=== PATIENT | female | born 1955 | race Caucasian/White ===

== ENCOUNTER 2019-02-03 05:59 | Inpatient (IN) ==
--- NOTE | 2019-01-24 10:00 | PAT Medication Instructions ---
Medication Instructions Date of Service January 24, 2019 Home Medications Cbd Oil 1 dose PO QAM albuterol sulfate 1 puff INHALATION UD PRN cyclobenzaprine 5 mg PO UD PRN hydrocodone-acetaminophen 1 tab PO UD PRN ibuprofen [Advil] 400 mg PO UD PRN ASK your surgeon for instructions ibuprofen [Advil] 400 mg PO UD PRN DO NOT take the morning of surgery Cbd Oil 1 dose PO QAM cyclobenzaprine 5 mg PO UD PRN Take morning of surgery With a small sip of water, OTHERWISE NOTHING TO EAT OR DRINK AFTER MIDNIGHT: albuterol sulfate 1 puff INHALATION UD PRN (use if needed; please bring with you to hospital day of surgery if possible) hydrocodone-acetaminophen 1 tab PO UD PRN (okay to take up to 4 hours prior to surgery if needed) Take evening before surgery albuterol sulfate 1 puff INHALATION UD PRN (if needed) cyclobenzaprine 5 mg PO UD PRN (if needed) hydrocodone-acetaminophen 1 tab PO UD PRN (if needed) Other Notes If you have any questions please call us at [phone] or [phone] or [phone] or [phone]
--- NOTE | 2019-01-24 14:41 | Anesthesiology Consultation ---
Date of Service January 24, 2019 Assessment & Plan (1) Encounter for pre-operative examination: Chart Review Chart Review: Pending: Refer to Additional Notes / Consult section (pending preop testing (labs, EKG, CXR)) and Patient seen in Pre Admission Testing Teaching & Discussion Pre-Anesthesia Teaching/Discussion Notes: Instructed NPO after midnight before surgery,except medications with 15 cc of water. Medication instructions provide d according to the PAT guidelines. History Surgery Operation Date: 02/03/19 14:20 Proposed Procedures p Right Total Hip Replacement - Dean Loving MD Height/Weight Height: 5 ft 1 in Weight: 98.7 kg Allergies Allergy/AdvReac Type Severity Reaction Status Date / Time nickel Allergy Unknown Rash Verified 01/16/19 14:35 acetaminophen [From Percocet] AdvReac Unknown N/V Verified 01/16/19 14:35 amitriptyline AdvReac Unknown anxiety, Verified 01/24/19 14:44 elevated BP gabapentin [From Neurontin] AdvReac Unknown anxiety, Verified 01/24/19 14:44 elevated BP morphine AdvReac Unknown anxiety, Verified 01/24/19 14:44 elevated BP oxycodone [From Percocet] AdvReac Unknown N/V Verified 01/16/19 14:35 prednisone AdvReac Unknown elevated Verified 01/24/19 14:44 heart rate, elevated BP, sweating, insomnia Additional Notes: *Surgeon/OR made aware* Medications Home Medications Medication Instructions Recorded Confirmed Last Taken Cbd Oil 1 dose PO QAM 01/16/19 01/16/19 Unknown albuterol sulfate 1 puff INHALATION UD PRN 01/16/19 01/16/19 Unknown cyclobenzaprine 5 mg PO UD PRN 01/16/19 01/16/19 Unknown hydrocodone-acetaminophen 1 tab PO UD PRN 01/16/19 01/16/19 Unknown ibuprofen [Advil] 400 mg PO UD PRN 01/16/19 01/16/19 Unknown Past Medical History Medical History Anxiety Asthma, exercise induced stable Fibromyalgia History of herniated intervertebral disc Morbid obesity Osteoarthritis Exercise / Class Metabolic Activity III < 4 Walking/Shop/Light housework Past Family History Family History Father Family history of diabetes mellitus Brother Family history of diabetes mellitus Past Surgical History Surgical History History of appendectomy History of colonoscopy History of gynecologic surgery MULTIPLE (FOR OVARIAN CYST REMOVAL) History of laparoscopic cholecystectomy History of total hysterectomy Past Anesthesia History No Hx of Anesthesia Complications and No Family Hx of Anesthesia Complications History of PONV No Hx of PONV and Hx of Motion Sickness Social History Smoking Status: Never smoker Do You Dip or Chew Tobacco: No Hx Alcohol Use: Yes Alcohol type: wine alcohol intake frequency: holidays/special occasions only Hx Substance Use: Yes (OTC CBD oil PRN hip pain) substance use type: prescription drug Review of Systems Patient denies chest pain, shortness of breath, reflux, cough, wheezing, palpitations. Physical Exam Vital Signs VITALS BP 132/83 P 81 TEMP 98.2 SP02 98%RA RESP 16 PHYSICAL Full neck and c-spine range of motion. Full TMJ range of motion. TMD 4 finger breaths Mallampati Score 2 Dentition: partial on the upper, lower left side chipped tooth Lungs: clear throughout to auscultation Cardiac: regular rate and rhythm, no murmurs noted Spine: normal Carotid arteries: negative bruit Extremities: no edema Short neck
--- NOTE | 2019-01-24 15:37 | XRay Report ---
TWO VIEW CHEST CLINICAL HISTORY: Preoperative examination. FINDINGS: PA and lateral chest radiographs are compared to study dated 01/26/2012. The cardiomediastin al silhouette is unremarkable. There are low lung volumes with bibasilar atelectasis. No airspace con solidation or pleural effusion is identified. There is no pneumothorax. The skeletal structures are o steopenic. The bony thorax appears intact. Degenerative change is seen in the shoulders and thoracic spine. Cholecystectomy clips are seen in the right upper quadrant. IMPRESSION: No active disease in the chest. Electronically signed by: Marco Thrasher M.D. 01/24/2019 3:36 PM
[2019-01-24 16:01] LABS: Basophils # (auto) 0.02 K/uL (0-0.2); Basophils % (auto) 0.3 %; Eosinophils # (auto) 0.16 K/uL (0-0.5); Eosinophils % (auto) 2.1 %; Hematocrit (blood only) 40.5 % (37-47); Hemoglobin 13.6 g/dL (12.0-16.0); Immature Granulocytes # (auto) 0.02 K/uL (0.00-0.02); Immature Granulocytes % (auto) 0.3 %; Lymphocytes # (auto) 2.96 K/uL (1.2-3.4); Mean Corpuscular Hemoglobin 28.8 pg (25-34); Mean Corpuscular Hgb Conc 33.6 g/dL (32-36); Mean Corpuscular Volume 85.6 fL (80-100); Mean Platelet Volume 9.9 fL (7.4-10.4); Monocytes # (auto) 0.62 K/uL (0.11-0.59); Neutrophils # (auto) 4.01 K/uL (1.4-6.5); Neutrophils % (auto) 51.3 %; Platelet Count 286 K/uL (130-400); RDW Coefficient of Variation 13.3 % (11.5-14.5); RDW Standard Deviation 41.7 fL (36.4-46.3); Red Blood Count 4.73 M/uL (4.2-5.4); White Blood Count 7.79 K/uL (4.8-10.8)
[2019-01-24 16:13] LABS: Partial Thromboplastin Time 26.8 Seconds (21.0-31.0); Prothrombin Time 10.1 Seconds (9.0-12.0)
[2019-01-24 16:21] LABS: BUN Creatinine Ratio 23.8 (10-20); C Reactive Protein 0.73 mg/dl (0-0.29); Calcium 9.5 mg/dl (8.5-10.1); Creatinine Clr Calc Pharmacy 89.7 ml/min; Est GFR (African American) 107.6; Est GFR (Non-African American) 92.9; Potassium 3.6 mmol/L (3.5-5.1)
--- NOTE | 2019-01-27 18:53 | History and Physical Report ---
DATE OF ADMISSION: 02/03/2019 CHIEF COMPLAINT: Right hip pain. HISTORY OF PRESENT ILLNESS: A 63-year-old female from [place] who presents for treatment of her right hip. She has a long history of back, hip and buttock pain. She has been extensively treated for some back issues in the past that have not gotten better. They noticed on x-ray that her hip was arthritic. They have treated her conservatively for this but it has become less successful over time. She describes buttock pain, groin pain and thigh pain. The more she walks, the more it hurts. They did attempt an intra-articular hip joint injection, which helped her very briefly. She has become more debilitated by her pain. She has difficulty putting her shoes and socks on. Cannot walk more than about 20 minutes before she has extensive discomfort. She has been taking hydrocodone for pain. She would like to have her hip fixed. PAST MEDICAL HISTORY: Includes: 1. Obesity with BMI of 41. 2. Back pain. PAST SURGICAL HISTORY: Include: 1. Hysterectomy. 2. Cholecystectomy. ALLERGIES: 1. MORPHINE, WHICH CAUSES NAUSEA. 2. PREDNISONE. CURRENT MEDICINES: Include: 1. Hydrocodone 1 tablet 3 times a day. 2. Cyclobenzaprine. 3. Advil. 4. CBD oil. SOCIAL HISTORY: A 63-year-old female. She is from [place]. She is . Does not drink. No smoking history. FAMILY HISTORY: Significant for diabetes and ovarian cancer. REVIEW OF HISTORY: Negative for diabetes, neurologic problems, vascular problems, or bleeding disorders. No chest pain or shortness of breath. No history of DVT or PE. PHYSICAL EXAMINATION: GENERAL: Reveals a pleasant, middle-aged female. Looks to be in pretty good health. HEENT: Benign. NECK: Supple, no lymphadenopathy. LUNGS: Clear to auscultation. HEART: Regular rate and rhythm. ABDOMEN: Soft, nontender, nondistended. EXTREMITIES: Grossly neurovascularly intact except as follows: Examination of the right hip and leg reveals the patient walks with an antalgic gait. She is about 0.5 cm short on the right compared to the left. She does have pain and stiffness with any type of hip motion. Internal rotation causes quite a bit of pain. Negative straight leg raise. X-RAYS: X-rays of the right hip were reviewed. It shows advanced right hip DJD. She has complete near loss of her superior joint space. She has cystic change of the femoral head and acetabulum. She has flattening in the femoral head. It looks like she has got some underlying dysplasia. Some bowing of the femur. ASSESSMENT: A 63-year-old female with advanced right hip degenerative joint disease. I think this is causing a lot of discomfort that she is having and she has failed conservative treatment. PLAN: We are going to take her to the operating room and do right total hip replacement. The risks and benefits of this procedure were explained to the patient including but not limited to DVT, PE, , infection, neurological injury, vascular injury, bleeding problem, pain, limited range of motion, stiffness, failure to relieve her symptoms, incomplete relief of symptoms, need for further surgery in the future, fracture, leg length inequality, nerve palsy, etc. I did tell her that this is not going to fix all of her problems, but I think it will help her significantly. She would like to proceed. We did encourage her to get off her narcotics preoperatively as it has been shown that people on narcotics do not do as well after surgery. She apparently has a NICKEL ALLERGY and we will use implants without any nickel. She is planning to be discharged home using [facility] home health program.
[2019-02-03] MEDS ORDERED: FAMOTIDINE 20 MG TAB PO SCH (06:00)
[2019-02-03] MEDS ORDERED: GABAPENTIN 600 MG DOSE PO SCH (06:00)
[2019-02-03] MEDS ORDERED: METOCLOPRAMIDE HCL 10 MG TABLET PO SCH (06:00)
[2019-02-03] MEDS ORDERED: LR 60ML/HR IV SCH (06:00)
[2019-02-03] MEDS ORDERED: SCOPOLAMINE 1.5 MG TDSY TD SCH (06:00)
[2019-02-03] MEDS ORDERED: TRANEXAMIC ACID 1,000 MG **IV Pre-op IV SCH (06:00)
[2019-02-03] MEDS ORDERED: ACETAMINOPHEN 500 MG TAB PO SCH (06:00)
[2019-02-03] MEDS ORDERED: LR 500ML BOLUS, THEN 15ML/HR IV SCH (06:00)
[2019-02-03] MEDS ORDERED: BUPIVACAINE 0.5 % 5 MG/1 ML PF 10ML VIAL ONE (06:19)
--- NOTE | 2019-02-03 06:55 | History & Physical Bridge Note ---
Date of Service February 03, 2019 History & Physical Bridge Note I have examined the patient, reviewed the History & Physical and in the interval since the performance of the History & Physical I have noted the following changes of clinical significance: no changes noted
[2019-02-03] MEDS ORDERED: CEFAZOLIN 2,000 MG/15 ML IV PUSH IV ONE (07:04)
[2019-02-03] MEDS ORDERED: MIDAZOLAM HCL 1 MG/ML 2ML VIAL ONE ×2 (07:20→09:05)
[2019-02-03] MEDS ORDERED: fentaNYL citrate 100 MCG/2 ML VIAL ONE (07:20)
[2019-02-03] MEDS ORDERED: MoRPHine SULFATE PF 1 MG/ML 10 ML AMP/VIAL ONE ×2 (07:21→08:28)
[2019-02-03] MEDS ORDERED: BUPIVACAINE/EPINEPHRINE 0.5% MPF 1:200,000 30 ML VIAL ONE (08:25)
[2019-02-03] MEDS ORDERED: BACITRACIN INJ 50,000 UNIT VIAL ONE (08:25)
[2019-02-03] MEDS ORDERED: NALOXONE HCL 0.4 MG/1 ML VIAL/CARP IV PRN ×2 (08:41→12:15)
[2019-02-03] MEDS ORDERED: ePHEDrine sulfate 50 MG/ML AMP IV PRN (08:41)
[2019-02-03] MEDS ORDERED: MoRPHine SULFATE PF 1 MG/ML 10 ML AMP/VIAL INT SPINAL ONE (08:41)
[2019-02-03] MEDS ORDERED: NALOXONE HCL 1 MG in SODIUM CHLORIDE 0.9% 1000ML 1,000 ML IV PRN (08:41)
[2019-02-03] MEDS ORDERED: NALOXONE HCL 0.08 MG in SYRINGE 1.8 ML IV PRN (08:41)
[2019-02-03] MEDS ORDERED: LACTATED RINGER'S 500 ML IV PRN (08:41)
[2019-02-03] MEDS ORDERED: NALBUPHINE HCL INJ 10 MG/ML AMP IV PRN (08:41)
[2019-02-03] MEDS ORDERED: HYDROmorphone INJ 0.5 MG/0.5 ML SYR IV PRN (08:41)
[2019-02-03] MEDS ORDERED: PROMETHAZINE HCL 25 MG in SODIUM CHLORIDE 0.9% 50 ML IV PRN (08:41)
[2019-02-03] MEDS ORDERED: METOCLOPRAMIDE HCL 10 MG in SODIUM CHLORIDE 0.9% 50 ML IV PRN (08:41)
[2019-02-03] MEDS ORDERED: MEPERIDINE HCL 25 MG/ML CARP IV PRN (08:41)
[2019-02-03] MEDS ORDERED: MoRPHine SULFATE 2 MG/ML CARP IV PRN (08:41)
[2019-02-03] MEDS ORDERED: NO NARCOTICS OR SEDATIVES SCH (08:45)
[2019-02-03] MEDS ORDERED: DC INTRASPINAL MORPHINE SCH (08:45)
[2019-02-03] MEDS ORDERED: SODIUM CHLORIDE 0.9% 1000ML 1,000 ML IV SCH (08:45)
[2019-02-03] MEDS ORDERED: PHENYLEPHRINE HCL 10 MG/ML VIAL ONE (09:54)
--- NOTE | 2019-02-03 10:38 | Post Operative Brief Note ---
PG Immediate Post Op with CF Date of Surgery February 03, 2019 Pre & Post Diagnosis Operation Date: 02/03/19 08:50 Pre-Op Diagnosis: Right Hip Advanced Degenerative Joint Disease Post-Op Diagnosis: Right Hip Advanced Degenerative Joint Disease I identified the patient and participated in the time-out.: Yes Procedure Operation Date: 02/03/19 08:50 Actual Procedures p Right Total Hip Arthroplasty--Uncemented(Right) - Dean Loving MD Surgeon Dean Loving MD [employer]st Lars, PAC Estimated Blood Loss 300 Findings Consistent with Post-Op Diagnosis Fluids 1600 cc Specimens Specimen Description: A. Right Femoral Head Drains Dobbs Catheter (A 16 [place] dobbs catheter was inserted by SANDOVAL Alexander, without difficulty, clear yellow urine obtained, output to be monitored by Anesthesia.) Anesthesia Type Spinal MAC Complications none Disposition Accompanied Patient To Recovery: Yes Disposition: Recovery Room
--- NOTE | 2019-02-03 11:09 | Anesthesiology Progress Note ---
Date of Service February 03, 2019 Anesthesia Post Procedure Vital Signs Vital Signs: Temp Pulse Pulse Resp BP Pulse Ox 02/03/19 10:55 83 16 130/59 L 96 02/03/19 10:45 82 20 118/58 L 99 02/03/19 10:38 36.7 C 86 21 116/57 L 100 02/03/19 06:43 36.6 C 68 18 157/78 H 97 Pain Intensity Right Hip: Pain Intensity: 0 Transfer of Care Handoff Completed per policy Notes Mental Status: alert / awake / arousable and participated in evaluation Patient Amnestic to Procedure: Yes Nausea / Vomiting: adequately controlled Pain: adequately controlled Airway Patency, RR, SpO2: stable & adequate BP & HR: stable & adequate Hydration State: stable & adequate Anesthetic Complications: no major complications apparent
[2019-02-03] MEDS: ONDANSETRON INJ 2 MG/ML 2 ML VIAL IV PRN ×2 (11:10→17:04)
--- NOTE | 2019-02-03 11:23 | XRay Report ---
XR hip 1V RT w pelvis CLINICAL HISTORY: IN PACU - A/P PELVIS and LATERAL HIP COMPARISON: None. DISCUSSION: Anatomic alignment posttotal right hip arthroplasty. Could contact between prosthetic and underlying bone. Expected post procedural soft tissue change. IMPRESSION: Anatomic alignment posttotal right hip arthroplasty. The above report was generated using voice recognition software. It may contain grammatical, syntax or spelling errors. Electronically signed by: Tony Ribera M.D. 02/03/2019 11:22 AM
--- NOTE | 2019-02-03 11:26 | Operative Report ---
DATE OF OPERATION: 02/03/2019 SURGEON: Dean Loving MD. GROUNDS PERSON: SANDOVAL Fuller. PREOPERATIVE DIAGNOSIS: Right hip degenerative joint disease. POSTOPERATIVE DIAGNOSIS: Right hip degenerative joint disease. PROCEDURE PERFORMED: Right uncemented ceramic on highly cross-linked polyethylene total hip arthroplasty. COMPLICATIONS: None. ESTIMATED BLOOD LOSS: 300 mL. FLUID REPLACEMENT: 1600 mL of crystalloid fluid replacement. ANESTHESIA: Spinal. DRAINS: None. SPECIMENS: Right femoral head sent for pathology. OPERATIVE INDICATIONS: The patient is a 63-year-old female who has had a several-year history of right hip pain and discomfort that has gradually gotten worse over time. She has been through extensive treatment for both her back and her hip in the past. This became more incapacitating. X-rays did show advanced hip arthritis. She elected to proceed with total hip arthroplasty. I did make her fully aware that this is not going to fix her back issues. OPERATIVE FINDINGS: Revealed right hip DJD. She had moderate hip joint effusion. She had some focal grade 4 changes of the superior aspect of the femoral head as well as the acetabulum and not a lot of osteophyte formation. This patient is morbidly obese with a BMI of 41. Due to her large size, it did make the surgery significantly more difficult and time consuming. OPERATIVE IMPLANTS: Consist of: 1. A Biomet G7 size 48 mm acetabular shell. 2. 6.5 cancellous acetabular screws, 1 at 35 mm length and 1 at 25 mm length. 3. An apex hole eliminator. 4. Highly cross-linked polyethylene liner with a 48 mm outer diameter and 32 mm inner diameter. 5. DePuy Corail size 10 KLA femoral stem. 6. A +1/32 mm ceramic articular ball. OPERATIVE PROCEDURE: The patient was taken to the operating room, identified and placed on the operating table in supine position. All contact areas were appropriately padded. IV antibiotics were provided by anesthesia team. Spinal anesthetic had been implemented in the holding area. Liang catheter was placed in sterile fashion. The patient was then placed in the left lateral decubitus position. An axillary roll was placed. [facility] hip positioner was used for positioning. The right hip and leg were then prepped and draped in usual sterile fashion. A posterolateral approach to the right hip was then performed through a curvilinear incision centered over the greater trochanter. Sharp dissection was carried through the subcutaneous tissue down to the level of the IT band. She had a very thick soft tissue envelope, probably almost 5-6 inches deep. The IT band and gluteal fascia were then incised longitudinally in line with skin incision. The underlying greater trochanteric bursa was excised. The piriformis, external rotators, and posterior hip capsule were then taken down as a single layer. Great care was taken throughout the procedure to protect the sciatic nerve at all times. Hip was internally rotated and dislocated. Femoral neck osteotomy cut was made with the final cut about 7-8 mm above the lesser trochanter. Femoral head was removed and sent for pathology. The femur was retracted anteriorly. Attention was then drawn to the acetabulum. The acetabulum labrum was excised. The pulvinar fat was excised. Sequential reaming of the acetabulum was then performed beginning with size 43 and progressing up to 47. A 48-mm Biomet G7 acetabular shell was then placed in about 40 degrees of lateral opening and 20 degrees of anteversion. I worked extremely hard getting her cup in appropriate lateral opening and anteversion due to her large soft tissue size. It was fixed with two 6.5 cancellous acetabular screws. A trial liner was placed. Attention was then drawn to the femur. The proximal femur was entered with a cookie cutter followed by canal finder. I broached beginning with a size 8 and progressing up to a 10. We got pretty good fit at 10 and I was not sure we could get the 11 in without damaging her femur. We elected to stop at a 10. Calcar reamer was used to smoothen off the calcar. I then trialed the hip and the hip was fully stable with the +1 articular ball. Soft tissue tension seemed appropriate. Leg lengths seemed equal. It was fully stable in full extension and external rotation and flexion to 90 degrees, internal rotation to over [address] I elected to place these implants. All trial implants were removed. An apex hole eliminator was placed. Highly cross-linked polyethylene liner was placed. A DePuy Corail size 10 KLA femoral stem was impacted in position. A +1/32 mm ceramic articular ball was placed. Hip was located and once again found to be stable. Attention was then drawn toward closing. The wound was irrigated with copious amounts of pulsatile lavage solution. I did inject locally with 60 mL of 0.5% Marcaine with epinephrine. Posterior capsule and external rotators were then repaired as a single layer through drill holes in the posterior trochanter with #2 Ti-Cron suture. The IT band and gluteal fascia were then closed with #1 PDS suture in running fashion. Subcutaneous tissue was then closed in 2 layers with the deep layer #2 Vicryl suture in a buried interrupted fashion and the more superficial tissues with 2-0 Dexon suture in a buried interrupted fashion. The skin was then closed with eric. Leg was then cleaned and dried. A Prevena wound VAC dressing was then placed due to her large soft tissue envelope. The patient was then transferred to the recovery room in stable condition. The patient tolerated the procedure well with no complications. All needle and sponge counts were correct at the end of the operation. I attest to the content of the Intraoperative Record and any orders documented therein. Any exception s are noted below.
[2019-02-03] MEDS ORDERED: METOCLOPRAMIDE HCL INJ 5 MG/ML 2 ML VIAL IV PRN (12:15)
[2019-02-03] MEDS ORDERED: ALUMINUM/MAGNESIUM SUSP 30 ML UDC PO PRN (12:15)
[2019-02-03] MEDS ORDERED: ALBUTEROL HFA 8 GM INHALER INH PRN (12:15)
[2019-02-03] MEDS ORDERED: bisacodyL 10 MG SUPP PR PRN (12:15)
[2019-02-03] MEDS ORDERED: HYDROmorphone HCL 2 MG TAB PO PRN (12:15)
[2019-02-03] MEDS ORDERED: MAGNESIUM HYDROXIDE SUSP 30 ML UDC PO PRN (12:15)
[2019-02-03] MEDS: ACETAMINOPHEN 500 MG TAB PO SCH ×2 (14:23→20:30)
[2019-02-03] MEDS: KETOROLAC 30 MG/ML VIAL IV SCH ×2 (14:23→18:31)
[2019-02-03] MEDS: SODIUM CHLORIDE 0.9% 1000ML 1,000 ML IV SCH ×2 (15:19→20:40)
[2019-02-03] MEDS: CHECK SCOPOLAMINE PATCH PLACEMENT SCH (15:25)
[2019-02-03] MEDS: CEFAZOLIN 2000MG 2,000 MG/15 ML SYR IV SCH (16:33)
[2019-02-03] MEDS: FERROUS GLUCONATE 324 MG TAB PO SCH (16:34)
[2019-02-03] MEDS: ASCORBIC ACID 500 MG TAB PO SCH (16:34)
[2019-02-03] MEDS ORDERED: TRANEXAMIC ACID 1,000 MG in 0.9 % SODIUM CHLORIDE 100 ML IV SCH (16:39)
--- NOTE | 2019-02-03 17:37 | Progress Note ---
DATE: 02/03/2019 SUBJECTIVE: A 63-year-old female postop from a right hip replacement. She is doing well. Not having any pain yet. No chest pain or shortness of breath. Not feeling dizzy or lightheaded. OBJECTIVE: VITAL SIGNS: Temperature 36.9. Vital signs stable. GENERAL: Shows a pleasant, middle-aged female. She is sitting up in bed and looks quite comfortable. She is awake, alert and oriented. LUNGS: Clear to auscultation. HEART: Regular rate and rhythm. ABDOMEN: Soft, nontender, nondistended. EXTREMITIES: Grossly neurovascularly intact except as follows: Examination of the right hip and leg reveals the leg lengths to be equal. Hip is located. Dressing is clean, dry and intact. Thigh is soft and supple. She had a large soft tissue envelope. X-RAYS: X-rays of the right hip from recovery room reviewed. It shows right uncemented total hip arthroplasty. Components looked to be in good position. No signs of problems. ASSESSMENT: A 63-year-old female postop from right hip replacement, doing well. Pain is controlled. Hip is located. She is neurologically intact. PLAN: 1. DVT prophylaxis including thigh-high TEDs, SCDs, and aspirin twice a day. 2. PT/OT. Weight bear as tolerated. Right total hip protocol. 3. Pain control, doing pretty well with current pain regimen. 4. IV antibiotics x24 hours. 5. Disposition: Plan to discharge to home with some home health once adequately recovered and medically stable.
[2019-02-03] MEDS: DOCUSATE SODIUM 100 MG CAP PO SCH (20:29)
[2019-02-03] MEDS: ASPIRIN 81 MG ECTAB PO SCH (20:29)
[2019-02-03] MEDS: DiphenhydrAMINE HCL 50 MG/ML VIAL IV PRN (20:30)
[2019-02-03] MEDS ORDERED: SENNA 8.6 MG TAB PO SCH (21:00)
[2019-02-04] MEDS: CEFAZOLIN 2000MG 2,000 MG/15 ML SYR IV SCH
[2019-02-04] MEDS: CHECK SCOPOLAMINE PATCH PLACEMENT SCH (00:02)
[2019-02-04] MEDS: DiphenhydrAMINE HCL 50 MG/ML VIAL IV PRN (02:19)
[2019-02-04] MEDS ORDERED: ONDANSETRON INJ 2 MG/ML 2 ML VIAL IV PRN (02:42)
[2019-02-04] MEDS ORDERED: HYDROmorphone HCL 2 MG TAB PO PRN (02:42)
[2019-02-04] MEDS ORDERED: CYCLOBENZAPRINE HCL 5 MG TAB PO PRN (03:00)
[2019-02-04] MEDS: ACETAMINOPHEN 500 MG TAB PO SCH (05:50)
[2019-02-04] MEDS: KETOROLAC 30 MG/ML VIAL IV SCH ×2 (05:50)
[2019-02-04 07:22] LABS: Basophils # (auto) 0.02 K/uL (0-0.2); Basophils % (auto) 0.2 %; Eosinophils # (auto) 0.07 K/uL (0-0.5); Eosinophils % (auto) 0.6 %; Hematocrit (blood only) 35.5 % (37-47); Hemoglobin 12.3 g/dL (12.0-16.0); Immature Granulocytes # (auto) 0.03 K/uL (0.00-0.02); Immature Granulocytes % (auto) 0.3 %; Lymphocytes # (auto) 1.42 K/uL (1.2-3.4); Mean Corpuscular Hemoglobin 29.3 pg (25-34); Mean Corpuscular Hgb Conc 34.6 g/dL (32-36); Mean Corpuscular Volume 84.5 fL (80-100); Mean Platelet Volume 9.2 fL (7.4-10.4); Monocytes # (auto) 1.21 K/uL (0.11-0.59); Monocytes % (auto) 10.2 %; Neutrophils # (auto) 9.13 K/uL (1.4-6.5); Neutrophils % (auto) 76.7 %; Platelet Count 245 K/uL (130-400); RDW Coefficient of Variation 13.4 % (11.5-14.5); RDW Standard Deviation 40.6 fL (36.4-46.3); White Blood Count 11.88 K/uL (4.8-10.8)
[2019-02-04 07:54] LABS: BUN Creatinine Ratio 15.6 (10-20); Calcium 8.7 mg/dl (8.5-10.1); Creatinine Clr Calc Pharmacy 81.5 ml/min; Est GFR (African American) 97.4; Est GFR (Non-African American) 84.1; Potassium 3.8 mmol/L (3.5-5.1)
[2019-02-04] MEDS: FERROUS GLUCONATE 324 MG TAB PO SCH (08:04)
[2019-02-04] MEDS: ASPIRIN 81 MG ECTAB PO SCH (08:04)
[2019-02-04] MEDS: ASCORBIC ACID 500 MG TAB PO SCH (08:04)
[2019-02-04] MEDS: DOCUSATE SODIUM 100 MG CAP PO SCH (08:04)
[2019-02-04] MEDS ORDERED: TAPENTADOL HCL ER 50 MG TABCR PO SCH (09:00)
[2019-02-04] MEDS ORDERED: MULTIVITAMIN TAB PO SCH (09:00)
[2019-02-04] MEDS ORDERED: NON-FORMULARY MEDICATION (Cbd Oil 1 EA) PO SCH (09:00)
--- NOTE | 2019-02-04 09:36 | Progress Note ---
DATE: 02/04/2019 SUBJECTIVE: A 63-year-old female postop day #1 from a right hip replacement. She is doing pretty well. Pain is controlled. She is pretty adamant about going home today. No chest pain or shortness of breath. Not feeling dizzy or lightheaded. OBJECTIVE: VITAL SIGNS: Temperature is 36.7. Vital signs stable. GENERAL: Reveals a pleasant, middle-aged female. She is sitting up in her bedside chair, looks comfortable. EXTREMITIES: Examination of the right leg reveals the dressing to be clean, dry and intact. She got a Prevena VAC in place. Leg lengths were equal. Hip is located. She is neurologically intact. LABORATORY DATA: Hemoglobin 12.3. Hematocrit 35.5. Electrolytes are stable. ASSESSMENT: A 63-year-old female postop day #1 from right total hip replacement, doing pretty well. Pain is controlled. PLAN: 1. DVT prophylaxis including thigh-high TEDs, SCDs, and aspirin twice a day. 2. PT/OT. Weight bear as tolerated. Right total hip protocol. 3. Pain control, doing pretty well with current pain regimen. 4. Wound care. We are going to use Prevena VAC for 7 days. I instructed her on use. 5. Disposition: Plan to discharge to home likely with some home health later today if she is doing okay.
[2019-02-05] MEDS ORDERED: HYDROmorphone INJ 0.5 MG/0.5 ML SYR IV PRN (02:42)
--- NOTE | 2019-02-08 11:31 | Discharge Summary ---
DATE OF ADMISSION: 02/03/2019 DATE OF DISCHARGE: 02/04/2019 ADMITTING PHYSICIAN AND SURGEON: Dr. Dean Loving. ADMITTING DIAGNOSIS: Right hip degenerative joint disease. SURGERY PERFORMED: Right total hip arthroplasty. SECONDARY DIAGNOSES: Include obesity and back pain. CONSULTS: None obtained. HISTORY AND PHYSICAL EXAMINATION: Well documented in the patient's chart. HOSPITAL COURSE: The patient was admitted on 02/03/2019, underwent total hip arthroplasty, tolerated the procedure well. There were no complications. She was transferred to the PACU postoperatively and later to the orthopedic floor for further care. She was given Ancef for antibiotic prophylaxis, JOSUE stockings, SCDs and aspirin for DVT prophylaxis. Hemoglobin, hematocrit and vital signs were monitored during her hospital stay and remained stable. She did not require any blood transfusions. There were no complications. On postoperative day #2, she was tolerating a regular diet, pain was controlled with oral pain medicine. She was participating in physical therapy. On postop day #1, she was discharged home, set up with home health services. She was given printed discharge instructions as well as new prescriptions for extra strength Tylenol, aspirin and hydromorphone. Continue her home medications with the exception of N[place]ita which she was told to stop. Continue physical therapy, weightbearing as tolerated, JOSUE stockings, total hip precautions. Follow up approximately 2 weeks postop or sooner if there are any problems or concerns.
== END 2019-02-04 12:29 | disposition home health service (06) | DRG 470 ==
LOC: ASU 05:59 → 3W 10:42 → MERGE 14:20

== ENCOUNTER 2024-03-24 04:46 | Observation (INO) ==
--- NOTE | 2024-02-25 10:52 | PAT Medication Instructions ---
Medication Instructions Date of Service February 25, 2024 Home Medications albuterol sulfate 90 mcg/actuation aerosol inhaler 1 puff inhalation UD PRN ASTHMA ibuprofen 200 mg tablet (Advil) 400 mg PO UD PRN Pain cyclobenzaprine 10 mg tablet 10 mg PO HS PRN Pain ASK your surgeon for instructions ibuprofen 200 mg tablet (Advil) 400 mg PO UD PRN Pain Take morning of surgery albuterol sulfate 90 mcg/actuation aerosol inhaler 1 puff inhalation UD PRN ASTHMA (use if needed; please bring rescue inhaler with you to hospital day of surgery if possible) Take evening before surgery cyclobenzaprine 10 mg tablet 10 mg PO HS PRN Pain (if needed) albuterol sulfate 90 mcg/actuation aerosol inhaler 1 puff inhalation UD PRN ASTHMA MORNING OF SURGERY: NOTHING TO EAT OR DRINK AFTER MIDNIGHT Other Notes If you have any questions please call us at [phone] or [phone] or [phone] or [phone]
--- NOTE | 2024-03-01 08:45 | Anesthesiology Consultation ---
Date of Service March 01, 2024 Assessment & Plan (1) Encounter for pre-operative examination: Outpatient joint assessment: Patient is currently scheduled for inpatient pathway. If re-evaluated and patient/surgeon requests outpatient pathway, patient is acceptable candidate for outpatient joint program from anesthesia standpoint pending surgeon's office assessment of pt motivation/support/completion of same day joint program preop requirements. Chart Review Chart Review: Acceptable Risk for Surgery and Patient seen in Pre Admission Testing Teaching & Discussion Pre-Anesthesia Teaching/Discussion Notes: Instructed NPO after midnight before surgery, except medications with 15 cc of water. Medication instructions provided according to the PAT guidelines. History Surgery Operation Date: 03/24/24 10:40 Proposed Procedures p Left Total Hip Arthroplasty - Dean Loving MD Height/Weight Height: 5 ft Weight: 105.4 kg Allergies Allergy/AdvReac Type Severity Reaction Status Date / Time nickel Allergy Mild Rash Verified 02/23/24 07:33 acetaminophen [From Percocet] AdvReac Mild N/V Verified 02/23/24 07:33 amitriptyline AdvReac Mild anxiety, Verified 02/23/24 07:33 elevated BP gabapentin [From Neurontin] AdvReac Mild anxiety, Verified 02/23/24 07:33 elevated BP hydromorphone [From Dilaudid] AdvReac Mild n/v Verified 02/23/24 07:33 morphine AdvReac Mild itching, Verified 02/23/24 07:42 n/v oxycodone [From Percocet] AdvReac Mild N/V Verified 02/23/24 07:33 prednisone AdvReac Mild elevated Verified 02/23/24 07:33 heart rate, elevated BP, sweating, insomnia Medications Home Medications Medication Instructions Recorded Confirmed Last Taken albuterol sulfate 90 mcg/actuation 1 puff inhalation UD PRN ASTHMA 01/16/19 02/23/24 Unknown aerosol inhaler ibuprofen 200 mg tablet (Advil) 400 mg PO UD PRN Pain 01/16/19 02/23/24 01/20/19 cyclobenzaprine 10 mg tablet 10 mg PO HS PRN Pain 02/23/24 02/23/24 Unknown Past Medical History Medical History (Updated 03/01/24 @ 09:00 by Sherron Hogan PA-C) Asthma, exercise induced controlled, stable per pt; last used inhaler>a couple weeks ago d/t cat trigger Fibromyalgia GERD (gastroesophageal reflux disease) controlled, stable per pt History of herniated intervertebral disc (~2008) Hypertension controlled, stable per pt; white coat HTN Morbid obesity Osteoarthritis Prediabetes Restless leg syndrome Spinal stenosis Patient denies h/o stroke, seizures, heart attack, heart failure, blood clots/DVTs or blood transfusions. Exercise / Class Metabolic Activity II 4-5 Yardwork/Stairs/Walk up hill (denies chest discomfort or shortness of breath with one flight of stairs) Past Family History Family History Father Family history of diabetes mellitus Brother Family history of diabetes mellitus Other No family history of adverse response to anesthesia Past Surgical History Surgical History History of appendectomy History of colonoscopy History of esophagogastroduodenoscopy (EGD) History of gynecologic surgery ovarian cyst removal History of laparoscopic cholecystectomy History of tooth extraction History of total hip arthroplasty right History of total hysterectomy History of total knee replacement left Past Anesthesia History No Hx of Anesthesia Complications and No Family Hx of Anesthesia Complications History of PONV No Hx of PONV and No Hx of Motion Sickness Social History Smoking Status: Never smoker Do You Dip or Chew Tobacco: No Hx Alcohol Use: Yes Alcohol type: wine alcohol intake frequency: holidays/special occasions only substance use type: does not use Review of Systems Occasional snoring, denies witnessed apneas. Patient denies chest pain, shortness of breath, dyspnea on exertion, fever, chills, cough, wheezing, or palpitations. Physical Exam Vital Signs Vitals BP 146/77 P 78 TEMP 97.8 SP02 96% on RA RESP 18 Physical Patient resting comfortably in chair in no acute distress, alert and oriented, responding appropriately throughout visit Full cervical extension range of motion without pain TMD 3.5 finger breadths Mallampati Score 2 Dentition: upper partial, cap and bridge left lower side, denies chipped or loose teeth, crowns, or implants Lungs: normal respiratory effort. Good air movement, clear throughout to auscultation, no adventitious breath sounds Cardiac: regular rate and rhythm, no murmurs noted Carotid arteries: negative bruit bilat Lab Results Anesthesia Preop Results Results Anesthesia Widget: WBC 6.50 K/ul (4.8-10.8) 03/01/24 Hgb 14.4 g/dl (12.0-16.0) 03/01/24 Hct 43.7 % (37.0-47.0) 03/01/24 Plt 312 K/uL (130-400) 03/01/24 Na 139 mmol/L (136-145) 03/01/24 K 3.8 mmol/L (3.5-5.1) 03/01/24 Cl 106 mmol/L (98-107) 03/01/24 CO2 24 mmol/L (21-32) 03/01/24 BUN 20 mg/dl (6-23) 03/01/24 Creat 0.67 mg/dl (0.6-1.2) 03/01/24 Glucose Level 112 mg/dl (70-99(Fasting)) H 03/01/24 PT 10.3 Seconds (9.0-12.0) 03/01/24 PTT 27 Seconds (21-31) 03/01/24 INR 0.9 (0.9-1.1) 03/01/24 Blood Type O Negative 03/01/24 Antibody Screen NEGATIVE 03/01/24 Testing Electrocardiogram Date: 12/17/23 NSR, rate 80 bpm Chest X-Ray Date: 03/01/24 No acute cardiopulmonary findings. Echocardiogram Date: 02/11/21 EF 60-64% Normal LV wall motion Grade I diastolic dysfunction No significant valvular pathology
--- NOTE | 2024-03-14 12:10 | History & Physical Report ---
Date of Service March 14, 2024 Assessment & Plan (1) Degenerative joint disease of left hip: 68-year-old female with with multiple medical comorbidities 4-1/2 years out from a right hip replacement with advanced left hip DJD. She has failed conservative measures. She would like to have her left hip replaced. Very happy with the right hip. Plan: We are going to take her to the operating room and do a left total hip replacement. The risks and benefits of this procedure explained in depth to include but not limited to a DVT, PE, , infection, neurovascular injury, fracture, dislocation, nerve palsy, excetra. The patient understands and desires to proceed. Informed consent was obtained. The patient has a very large soft tissue envelope which increase her risk for infection. Will likely use a Prevena VAC dressing to try and minimize this. Will plan on using aspirin for DVT prophylaxis along with teds and SCDs. She is planned to be discharged to home with home health. (2) Hypertension: (3) GERD (gastroesophageal reflux disease): (4) Spinal stenosis: (5) Prediabetes: (6) Morbid obesity: (7) Asthma, exercise induced: History of Present Illness Chief Complaint: . Persistent, progressive left hip pain and discomfort. Primary Care Provider: Milly Hobson MD . The patient is a 68-year-old female who is 1 moat known to me from a previous right hip replacement done 4 and half years ago. Her right hip is done great. Over the past several years she developed increased pain and discomfort in the left hip. Its gotten significantly worse over the past year. Scribes groin pain and thigh pain. It is increased with weightbearing. She limps all the time but the more as the day goes on. Denies any back pain. She like to have her left hip replaced. Allergies Allergy/AdvReac Type Severity Reaction Status Date / Time nickel Allergy Mild Rash Verified 02/23/24 07:33 acetaminophen [From Percocet] AdvReac Mild N/V Verified 02/23/24 07:33 amitriptyline AdvReac Mild anxiety, Verified 02/23/24 07:33 elevated BP gabapentin [From Neurontin] AdvReac Mild anxiety, Verified 02/23/24 07:33 elevated BP hydromorphone [From Dilaudid] AdvReac Mild n/v Verified 02/23/24 07:33 morphine AdvReac Mild itching, Verified 02/23/24 07:42 n/v oxycodone [From Percocet] AdvReac Mild N/V Verified 02/23/24 07:33 prednisone AdvReac Mild elevated Verified 02/23/24 07:33 heart rate, elevated BP, sweating, insomnia Home Medications Medication Instructions Recorded Confirmed Type albuterol sulfate 90 mcg/actuation 1 puff inhalation UD PRN ASTHMA 01/16/19 02/23/24 History aerosol inhaler ibuprofen 200 mg tablet (Advil) 400 mg PO UD PRN Pain 01/16/19 02/23/24 History cyclobenzaprine 10 mg tablet 10 mg PO HS PRN Pain 02/23/24 02/23/24 History Past Med/Surg History Problem List Degenerative joint disease of left hip Encounter for pre-operative examination Medical History Hypertension controlled, stable per pt; white coat HTN Spinal stenosis GERD (gastroesophageal reflux disease) controlled, stable per pt Prediabetes Restless leg syndrome Morbid obesity History of herniated intervertebral disc (~2008) Osteoarthritis Fibromyalgia Asthma, exercise induced controlled, stable per pt; last used inhaler>a couple weeks ago d/t cat trigger Surgical History History of total knee replacement left History of esophagogastroduodenoscopy (EGD) History of tooth extraction History of total hip arthroplasty right History of colonoscopy History of appendectomy History of laparoscopic cholecystectomy History of total hysterectomy History of gynecologic surgery ovarian cyst removal Family History Father Family history of diabetes mellitus Brother Family history of diabetes mellitus Other No family history of adverse response to anesthesia Social History Smoking Status: Never smoker Second Hand Exposure: Yes (in the past as a child "limited"); Do You Dip or Chew Tobacco: No; Hx Alcohol Use: Yes Alcohol type: wine Preferred Language: Belarusian Communication Ability: Effective Search Marketing Specialist Required: No Beliefs That Will Affect Care: None marital status: Current Living Situation: Spouse Feels Safe at Home: Yes Safety Concerns: Feels Safe At This Time Assistive Devices: Glasses Assistive Devices Comment: upper partial plate Review of Systems All systems reviewed & are unremarkable except as noted in HPI & below. Physical Exam . Physical examination reveals a fairly large moderately obese middle-age female. Otherwise looks to be in reasonably good health. Examination left hip reveal patient walks with a markedly antalgic gait. She limps on the left side. Large soft tissue envelope. She is about a half a centimeter shorter on this side compared to the opposite side. She has pain with any type of hip motion. No knee effusion. Negative straight leg raise. She is neurologically intact. Constitutional WD/WN, vitals as above Respiratory normal respiratory effort, lungs clear to auscultation Cardiovascular RRR, no murmur, no edema Gastrointestinal (Abdomen) normal bowel sounds, soft, nontender, no hepatosplenomegaly Results & Data Results & Data Laboratory Results . Diagnostic Findings . X-rays of the left hip were reviewed. Shows advanced left hip arthritis. She is got complete loss of the superior joint space. She is got a significant cyst in her acetabulum as well as the femoral head. The right hip replacement looks to be in good position without problems. PG Care Time/CCT Total # of Minutes Spent Total Time Spent with Patient: Total time spent is greater than 50% in coordination of care (as documented) at patient's floor/unit and/or counseling patient: Coding Level of Care Code None Diagnoses Degenerative joint disease of left hip M16.12 Hypertension I10 GERD (gastroesophageal reflux disease) K21.9 Spinal stenosis M48.00 Prediabetes R73.03 Morbid obesity E66.01 Asthma, exercise induced J45.990
[2024-03-24] MEDS: FAMOTIDINE 20 MG TAB PO SCH (06:00)
[2024-03-24] MEDS: METOCLOPRAMIDE HCL 10 MG TABLET PO SCH (06:00)
[2024-03-24] MEDS: SODIUM CHLORIDE 0.9% 1,000 ML IV SCH (06:00)
[2024-03-24] MEDS: CeleBREX 200 MG CAP PO SCH (06:00)
[2024-03-24] MEDS: ACETAMINOPHEN 500 MG TAB PO SCH ×3 (06:00→16:43)
[2024-03-24] MEDS: LR 500ML BOLUS, THEN 15ML/HR IV SCH (06:19)
[2024-03-24] MEDS ORDERED: BUPIVACAINE 0.5 % 5 MG/1 ML PF 10ML VIAL ONE (06:26)
[2024-03-24] MEDS ORDERED: MIDAZOLAM HCL 1 MG/ML 2ML VIAL ONE (06:44)
[2024-03-24] MEDS ORDERED: fentaNYL citrate PF 100 MCG/2 ML VIAL ONE (06:44)
--- NOTE | 2024-03-24 06:51 | History & Physical Bridge Note ---
Date of Service March 24, 2024 History & Physical Bridge Note I have examined the patient, reviewed the History & Physical and in the interval since the performance of the History & Physical I have noted the following changes of clinical significance: no changes noted
[2024-03-24] MEDS: dexAMETHasone**PF** 10 MG/ML VIAL IV SCH (06:52)
[2024-03-24] MEDS: TRANEXAMIC ACID 1,000 MG **IV Pre-op IV SCH (06:53)
[2024-03-24] MEDS: ceFAZolin 2000MG 2,000 MG/15 ML SYR IV SCH ×2 (07:10→16:42)
[2024-03-24] MEDS ORDERED: PROPOFOL IV EMULSION 10 MG/ML 20 ML VIAL IV ONE (07:14)
[2024-03-24] MEDS ORDERED: ePHEDrine sulfate 50 MG/5 ML SYR ONE (07:27)
[2024-03-24] MEDS ORDERED: PHENYLEPHRINE 100MCG/ML 5ML SYR ONE (07:27)
[2024-03-24] MEDS ORDERED: DROPERIDOL 5 MG/2 ML VIAL IV PRN (07:29)
[2024-03-24] MEDS ORDERED: ATROPINE SULFATE 0.1 MG/ML 10ML SYR IV PRN (07:29)
[2024-03-24] MEDS ORDERED: HYDROmorphone INJ 2 MG/ML SYR/VIAL IV PRN (07:29)
[2024-03-24] MEDS ORDERED: ePHEDrine sulfate 50 MG/ML AMP IV PRN (07:29)
[2024-03-24] MEDS ORDERED: PROMETHAZINE HCL 6.25 MG in SODIUM CHLORIDE 0.9% 50 ML IV PRN (07:29)
[2024-03-24] MEDS ORDERED: PHENYLEPHRINE HCL 10 MG/ML VIAL ONE (07:46)
[2024-03-24] MEDS: BUPIVACAINE/EPINEPHRINE 0.5% MPF 1:200,000 30 ML VIAL ONE (07:47)
[2024-03-24] MEDS ORDERED: KETAMINE HCL 10MG/ML SYR ONE (08:01)
--- NOTE | 2024-03-24 09:11 | Operative Report ---
PG Post Operative Report Pre & Post Diagnosis Operation Date: 03/24/24 07:00 Pre-Op Diagnosis: Left Hip Degenerative Joint Disease Post-Op Diagnosis: Left Hip Degenerative Joint Disease I identified the patient and participated in the time-out.: Yes Procedure Operation Date: 03/24/24 07:00 Actual Procedures p Left Total Hip Arthroplasty, Uncemented(Left) - Dean Loving MD Surgeon Dean Loving MD Qa Engineer EDEL Sousa Estimated Blood Loss 200 Findings Consistent with Post-Op Diagnosis Operative findings revealed a very large thick soft tissue envelope. She had grade 4 [id number] disease of the femoral head and acetabulum. Specimens Left femoral head sent for pathology. Anesthesia Type Spinal MAC Complications none Disposition Accompanied Patient To Recovery: No Indications Patient is a 68-year-old female whose had a history of hip problems and underwent a right hip replacement about 5 years ago. Over the past couple years she developed increased pain discomfort in her left hip. X-rays show advanced left hip arthritis which has progressed markedly over the past several years. As she elected proceed with surgical treatment. This patient has a BMI of 46 and a very large soft tissue envelope which made the surgery much more difficult and challenging. Description of Procedure Operative implants consist of: 1 Biomet G7 size 48 mm acetabular shell. 2. 6.5 cancellous acetabular screws 135 mm in length and 1 of 20 mm length. 3. [place] hole picker tender helper. 4. Highly cross-linked polyethylene liner with 48 mm outer diameter 32 mm inner diameter. 5. DePuy Corail size 12 KLA femoral stem. 6. +1/32 mm ceramic articular ball. The patient was taken to the op room, identified, placed on the operating table in the supine position. All conductors were appropriately padded. IV antibiotics fibra anesthesia team. A spinal anesthetic had been implemented holding area. Liang catheter was placed in sterile fashion. The patient was then placed in the right lateral decubitus position. An axillary roll was placed. A Stulberg hip positioner was used for positioning. Left hip and leg were prepped and draped in the usual sterile fashion. A posterolateral approach to the left hip was then performed to a curvilinear incision centered over the greater trochanter. Sharp dissection was got through subcutaneous tissue down the IT band gluteal fascia. The IT band gluteal fascia were then incised longitudinally in line with skin incision. The underlying greater bursa was excised. The piriformis and external rotators along with the posterior hip joint capsule was then released from the posterior aspect of the hip as a single layer. Great care was taken throughout the procedure protect the sciatic nerve at all times. The hip was internally rotated and dislocated. A femoral neck osteotomy cut was made with Final Cut about 10 mm above the lesser trochanter. Femoral head was removed and sent for pathology. The femur was retracted anteriorly. Attention drawn the acetabulum. The acetabular labrum was excised. The pulmonary fat was excised. Sequential reaming the acetabular was then performed again with a size 43 and progressing up to a 47. I then reamed a little bit with a 48 reamer and placed a 48 mm Biomet G7 acetabular shell in about 40 degrees lateral opening and 20 degrees of anteversion. We worked hard to get this in appropriate position due to her large soft tissue stature. A trial liner was placed. Attention drawn the femur. The proximal femur examined with cookie-cutter followed by canal finder. I then broached beginning size 8 and progressing up to 12. Got excellent fitted to 12. We then trialed the hip and the +1 articular ball seemed to fit appropriately with soft tissue tension and stability. This is the same size that we used on the operative side. We elect to place these implants. All trial implants were removed. An apex hole picker tender helper was placed. Highly cross-linked polyethylene liner was placed. A size 12 KLA femoral stem was impacted in position. +1/32 mm articular ball was then placed. Hip was located once again found to be stable. Attention drawn toward closing. The wounds irrigated coconuts pulsatile lavage solution. I did inject locally with 60 cc of half percent Marcaine with epinephrine. The posterior capsule and external rotators then repaired through drill holes in the posterior trochanter with #2 Tycron suture. The IT band gluteal fascia then closed with #1 PDS suture in a running fashion. The subcutaneous tissues were then closed with 2 l bianchi of the deep layer #2 Vicryl suture in the more superficial layer with 0 Dexon suture in a buried interrupted fashion. Skin was closed with skin eric. The leg was then cleaned and dried and a Prevena VAC dressing was applied due to her large thick deep soft tissue envelope. The patient was then transferred to the recovery room in stable condition. Patient tolerated procedure well and there were no complications. Zurdo Sousa, my physician business services assistant, was present for the entire procedure. His assistance was essential and required for appropriate patient positioning, prepping and draping, surgical exposure, performing the technical details of the operation, placement the implants, closure of the wound, and placement of the sterile bandage. I attest to the content of the Intraoperative Record and any orders documented therein. Any exceptions are noted below.
--- NOTE | 2024-03-24 09:42 | XRay Report ---
XR hip 1V LT w pelvis HISTORY: 68 years-old Female IN PACU - Post Surgical left hip arthroplasty COMPARISON: 01/28/2024 TECHNIQUE: AP view the pelvis with crosstable lateral view of the left hip FINDINGS: Unchanged appearance of the right hip arthroplasty. Satisfactory alignment of the left hip arthroplas ty with expected postoperative soft tissue swelling and deep tissue air. No acute fracture or malalig nment. Lateral skin eric. IMPRESSION: Satisfactory alignment of the left hip arthroplasty. ACT 112: Negative or not required by law. The above report was generated using voice recognition software. It may contain grammatical, syntax o r spelling errors. Electronically signed by: Robin Jasmine M.D. 03/24/2024 9:40 AM
[2024-03-24] MEDS ORDERED: ALUMINUM/MAGNESIUM SUSP 30 ML UDC PO PRN (11:27)
[2024-03-24] MEDS ORDERED: MAGNESIUM HYDROXIDE SUSP 30 ML UDC PO PRN (11:27)
[2024-03-24] MEDS ORDERED: oxyCODONE HCL IR 5 MG TAB (IMMEDIATE RELEASE) PO PRN (11:27)
[2024-03-24] MEDS ORDERED: bisacodyL 10 MG SUPP PR PRN (11:27)
[2024-03-24] MEDS ORDERED: ALBUTEROL HFA 8 GM INHALER INH PRN (11:27)
[2024-03-24] MEDS ORDERED: NALOXONE HCL 0.4 MG/1 ML VIAL/CARP IV PRN (11:27)
[2024-03-24] MEDS: LR 60ML/HR IV SCH (11:28)
[2024-03-24] MEDS: DEXAMETHASONE SOD INJ 4 MG/ML VIAL IV STA (11:29)
[2024-03-24] MEDS: KETOROLAC TROMETHAMINE 15 MG/ML VIAL IV SCH (11:47)
[2024-03-24] MEDS: HYDROmorphone INJ 0.5 MG/0.5 ML SYR IV PRN (13:31)
[2024-03-24] MEDS: ASPIRIN 81 MG ECTAB PO SCH (13:56)
[2024-03-24] MEDS: SENNA 8.6 MG TAB PO SCH ×2 (13:57→20:43)
--- NOTE | 2024-03-24 14:38 | Anesthesiology Progress Note ---
Date of Service March 24, 2024 Anesthesia Post Procedure Vital Signs Vital Signs: Temp Pulse Pulse Resp BP BP Pulse Ox 03/24/24 13:54 36.6 C 105 H 18 161/81 H 94 03/24/24 12:45 104 H 18 177/94 H 95 03/24/24 11:34 95 H 20 163/99 H 96 03/24/24 10:46 36.8 C 87 18 154/81 H 95 03/24/24 10:20 36.5 C 92 H 16 158/78 H 97 03/24/24 10:00 89 14 136/77 95 03/24/24 09:50 36.4 C L 88 16 144/78 H 97 03/24/24 09:40 86 14 141/69 H 97 03/24/24 09:30 84 18 131/75 99 03/24/24 09:20 88 20 144/73 H 99 03/24/24 09:10 86 18 145/63 H 100 03/24/24 09:00 36 C L 86 14 126/65 99 03/24/24 05:47 36.6 C 84 18 171/78 H 97 O2 Del Method O2 Flow Rate 03/24/24 13:54 Room Air 03/24/24 12:45 Room Air 03/24/24 11:34 Room Air 03/24/24 10:46 Room Air 03/24/24 10:20 Room Air 03/24/24 10:00 Room Air 03/24/24 09:50 Room Air 03/24/24 09:40 Room Air 03/24/24 09:30 Room Air 03/24/24 09:20 Room Air 03/24/24 09:10 Oxymask 4 03/24/24 09:00 Oxymask 6 03/24/24 05:47 Room Air Pain Intensity Left Hip: Pain Intensity: 5 Transfer of Care Handoff Completed per policy Notes Mental Status: alert / awake / arousable and participated in evaluation Nausea / Vomiting: adequately controlled Pain: adequately controlled Airway Patency, RR, SpO2: stable & adequate BP & HR: stable & adequate Hydration State: stable & adequate Anesthetic Complications: no major complications apparent and Pt Satisfied with anesthetic care
[2024-03-24] MEDS: TRANEXAMIC ACID / 0.7% NACL 1,000 MG/100 ML BAG IV SCH (16:43)
[2024-03-24] MEDS: ASCORBIC ACID 500 MG TAB PO SCH (16:44)
[2024-03-24] MEDS: DOCUSATE SODIUM 100 MG CAP PO SCH (20:43)
[2024-03-25] MEDS: ONDANSETRON INJ 2 MG/ML 2 ML VIAL IV PRN (03:50)
[2024-03-25] MEDS: CYCLOBENZAPRINE HCL 10 MG TAB PO PRN (03:50)
[2024-03-25 05:09] VITALS: RESP 16
[2024-03-25] MEDS: METOCLOPRAMIDE HCL INJ 5 MG/ML 2 ML VIAL IV PRN (06:40)
[2024-03-25 07:15] LABS: Basophils # (auto) 0.02 K/uL (0.00-0.20); Basophils % (auto) 0.1 %; Hematocrit (blood only) 37.6 % (37.0-47.0); Hemoglobin 12.7 g/dl (12.0-16.0); Immature Granulocytes # (auto) 0.09 K/uL (0.01-0.20); Immature Granulocytes % (auto) 0.6 %; Lymphocytes # (auto) 1.42 K/uL (1.20-3.40); Lymphocytes % (auto) 8.7 %; Mean Corpuscular Hemoglobin 28.2 pg (25.0-34.0); Mean Corpuscular Hgb Conc 33.8 g/dL (32.0-36.0); Mean Corpuscular Volume 83.4 fL (80.0-100.0); Mean Platelet Volume 9.7 fL (9.4-12.4); Monocytes # (auto) 1.36 K/uL (0.11-0.59); Monocytes % (auto) 8.4 %; Neutrophils # (auto) 13.37 K/uL (1.40-6.50); Neutrophils % (auto) 82.2 %; Platelet Count 300 K/uL (130-400); RDW Coefficient of Variation 13.3 % (11.5-14.5); RDW Standard Deviation 40.1 fL (36.4-46.3); Red Blood Count 4.51 M/uL (4.20-5.40); White Blood Count 16.26 K/ul (4.8-10.8)
[2024-03-25 07:35] LABS: BUN Creatinine Ratio 26.7 (10-20); Calcium 9.2 mg/dl (8.6-10.3); Creatinine Clr Calc Pharmacy 101.1 ml/min; Potassium 4.3 mmol/L (3.5-5.1)
[2024-03-25] MEDS: dexAMETHasone 10 MG in SYRINGE 0 ML IV SCH (07:42)
--- NOTE | 2024-03-25 07:43 | Orthopedic Progress Note ---
Date of Service March 25, 2024 Assessment & Plan (1) Status post left hip replacement: Plan: 68-year-old female postop day 1 from left hip replacement doing well. The pain is controlled. She is neurologically intact. She is hoping to go home today. Plan: 1.DVT prophylaxis including thigh-high teds, SCDs, aspirin twice a day. 2. PT/OT. Weight-bear as top. Left total hip protocol. 3. Pain control. Doing pretty well with current pain regimen. She is got pain medicine at home that she takes from her primary care doctor. 4. Disposition plan discharge home with some home health if she does okay in therapy today. (2) Morbid obesity: (3) Fibromyalgia: (4) Asthma, exercise induced: (5) GERD (gastroesophageal reflux disease): (6) Hypertension: Admission and Anticipated Discharge Date Admission Date: March 24, 2024 Subjective 68-year-old female now postop day 1 from a left uncemented hip replacement. She is doing well this morning. Hoping to go home.No chest pain or shortness of breath. Not feeling dizzy or lightheaded. Physical Exam Physical Exam: Physical examination reveals a pleasant middle-age female. She sitting up in her bedside chair looks comfortable. Examination of the left hip reveals leg lengths are equal. Dressing is clean dry and intact. Thigh is soft and supple. She is neurologically intact. Respiratory: normal respiratory effort, lungs clear to auscultation Cardiovascular: RRR, no murmur, no edema Gastrointestinal (Abdomen): normal bowel sounds, soft, nontender, no hepatosplenomegaly Results & Data Vital Signs (Past 12 Hours) Vital Signs Temp Pulse Resp BP Pulse Ox O2 Del Method 03/25/24 07:17 36.5 C 93 H 16 168/73 H 97 Room Air 03/25/24 05:08 36.7 C 81 16 131/76 96 Room Air 03/25/24 00:26 37.2 C 93 H 14 143/73 H 9 L Room Air 03/24/24 19:46 36.7 C 99 H 14 161/84 H 94 Room Air Laboratory Results Hemoglobin 12.7. Hematocrit 37.6.Electrolytes are stable.
[2024-03-25 08:04] VITALS: BP 152/70; PULSE 86; TEMP 97.9; O2SAT 99
[2024-03-25] MEDS: MULTIVITAMIN TAB PO SCH (08:34)
--- OUTSIDE RECORDS SUMMARY | 2024-03-26 06:01 | External Medical Summary | Summary of Care ---
Author Name Unknown Organization [facility] Address [address] [facility] [address] Phone [phone] Care Team Providers Care Vehicle Fare Collector Name Role Phone Alena Babcock DO Primary Care Provider Encounter Details Date Type Department Care Team (Late st Contact Info) Description 02/22/2024 Telephone Family Medicine [address] [phone] Alena Babcock DO [address] [place] [address] [place] [address] Allergies Active Allergy Reactions Criticality Noted Date Comments Estrogens 03/19/2000 Premarin Estrogens 03/19/2000 Estrace vaginal cream Morphine Sulfate Psych complications Medium 09/21/2007 depression Prednisone 12/20/2008 Anxiety, hyper Soy Allergy Itching 05/14/2015 documented as of this encounter (statuses as of 03/01/2024) Medications Cyclobenzaprine HCl 10 MG Oral Tablet (Flexeril)Indica tions:Fibromyalg ia Take 1 Tablet by mouth daily as needed for Muscle spasms. 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 0 to 44.9 in adult 2018 01/11/2020 Overview (01/11/2020): Used a combination instead which is more appropriate Per Obesity protocol - 210 lbs Premature menopause 03/18/2018 01/04/20 24 Organic sleep disorder 07/31/201001/03 OBESITY, BMI 30-34 (SEE ACTUAL BMI) 07/11/2009 03/08/2014 Overview (07/11/2009): Per Obesity Taxonomy Dyspnea and respiratory abnormality 11/17/2007 01/24/2015 Overview (02/09/2017): ICD-10 update of inactive term NONALLERGIC RHINITIS 11/17/2007 024 ADVANCE DIRECTIVE INFORMATION 03/04/2006 01/04/2024 Overview (03/04/2006): Information given to patient. MUSC DISUSE ATROPHY NEC 12/21/200106/2008 MYALGIA AND MYOSITIS NOS 01/10/2001 Anxiety state 03/11/2015 BACKACHE NOS 03/08/2014 BMI 39.0-39.9,adult 12/31/19 19 Overview (03/17/2017): 210 lbs documented as of this encounter (statuses as of 03/01/2024) Immunizations Name Administration Dates Next Due COVID-19 mRNA, LNP-s, No Pre serve, 2-Dose Series (Moderna) 06/25/2020,05/23/2020 Pneumococcal Conjugate Vaccine, 20-valent (Prevn ar20) 03/25/2022 Seasonal Influenza, PF, 6 M & above, IM , (FluLaval or Fluzone) 01/21/2021,02/10/2020 Seasonal Influenza, Quadrivalent Hd (Fluzone Hd) 01/19/2022 TDAP (age 10 and older)(Boostrix) 06/04/2023 TDAP, Age 7 and older, IM (Adacel) 01/24/2010 Zoster Vaccine Recombinant (Shingrix) 06/04/2023 documented as of this encounter Social History Tobacco Use Types Packs/Day Years Used Date Smoking Tobacco: Never Smokeless Tobacco: Never Comments:no passive smoke Alcohol Use Standard Drinks/Week Comments No 0 (1 standard drink = 0.6 oz pur e alcohol) PHQ-2 Answer Date Recorded PHQ Adult Total Score 0 07/16/2022 Hunger Vital Sign Answer Date Recorded Within the past 12 months, y ou worried that your food would run out before you got the money to buy more. Never true 07/17/19 23 Within the past 12 months, t he food you bought just didn't last and you didn't have money to get more. 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 The referralthat was sent states Right hip pain, they said pt has pain in her Left hip. documented in this encounter Plan of Treatment Upcoming Encounters Date Type Department Care Team (Late st Contact Info) Description 06/05/2024 3:30 PM EST [place] Radiology, [address] [place] [address] 08/25/2024 9:30 AM EDT Office Visit Family Medicine [address] [place] [address] [address] [place] [address] Scheduled Procedures Name Priority Associated Diagnoses Date/Ti me COLONOSCOPY FLEXIBLE PROXIMA L DIAGNOSTIC Recall Encounter for screening colonoscopy Health Maintenance Due Date Last Done Comments Cologuard 2001 Fecal Occult Blood Test 2001 Sigmoidoscopy 2001 *BISPHONATE OR OTHER ACCEPTABLE MEDICATION NEEDED FOR OSTEOPOROSIS (REFER TO SMARTSET #1146) 12/21/2019 Adult Wellness Visit 2022 DXA Scan 01/06/2023 01/06/2021, 04/06/2018, 02/26/2009 Depression Screening 07/17/2023 07/16/2022 Zoster Vaccines (2 of 2) 07/30/2023 06/04/2023 GFR 10/17/2023 10/16/2022, 06/19, 01/19/2022, Additional history exists COVID-19 Vaccine ( season) 2023 05/03/2021, 06/25/2020, 05/23/2020 Influenza Vaccine (FLU shot) (#1) 2023 01/19/2022, 01/19/2022, 01/21/2021, Additional history exists HbA1c 01/05/2025 01/06/2024, 06/19, 05/15/2021, Additional history exists Mammogram 01/05/2025 01/06/2024, 12/18, 07/15/2022, Additional history exists Colonoscopy 05/22/2025 05/22/2015, 05/22/2015 Colorectal Cancer Screening 05/22/2025 Albumin/Creatinine Ratio 07/16/2025 023, 03/25/2022, 05/15/2021 Lipid Panel 07/17/2027 07/16/2022, 04/20, 11/18/2020, Additional history exists DTap/Tdap Vaccines (3 - Td or Tdap) 06/04/2033 06/04/2023, 01/24/2010, 07/10/2003, Additional history exists Pneumococcal Vaccine: 65+ Years Completed 03/25/2022 VITAMIN D LEVEL ONCE IN A LIFETIME-USE SMARTSET# 34976 Completed 01/06/2024, 03/20/2019, 03/21/2018, Additional history exists HPV (Gardasil) Vaccine Aged Out No lo nger eligible based on patient's age to complete this topic Hepatitis B Vaccine Aged Out No longe r eligible based on patient's age to complete this topic MENINGOCOCCAL (MENACTRA/MENVEO) Aged Out No longer eligible based on patient's age to complete this topic documented as of this encounter Medical Devices Not on filedocumented as of this encounter Visit Diagnoses Diagnosis Hip pain, left- Primary Pain in joint, pelvic region and thigh documented in this encounter Care Teams Vehicle Fare Collector Relationship Specialty Start Date End Date Alena Babcock DO [address] [place] [address] [place] [phone] PCP - General Internal Medicine 01/04/24 documented as of this encounter
--- NOTE | 2024-03-29 15:00 | Discharge Summary ---
Date of Service March 29, 2024 Admission HPI (Per Admitting) . The patient is a 68-year-old female who is 1 moat known to me from a previous right hip replacement done 4 and half years ago. Her right hip is done great. Over the past several years she developed increased pain and discomfort in the left hip. Its gotten significantly worse over the past year. Scribes groin pain and thigh pain. It is increased with weightbearing. She limps all the time but the more as the day goes on. Denies any back pain. She like to have her left hip replaced. Admission Exam (Per Admitting) . Physical examination reveals a fairly large moderately obese middle-age female. Otherwise looks to be in reasonably good health. Examination left hip reveal patient walks with a markedly antalgic gait. She limps on the left side. Large soft tissue envelope. She is about a half a centimeter shorter on this side compared to the opposite side. She has pain with any type of hip motion. No knee effusion. Negative straight leg raise. She is neurologically intact. Principal Diagnosis Same as "Discharge Diagnosis" noted below under Discharge Instructions. Discharge Data Procedures Performed Operation Date: 03/24/24 07:00 Actual Procedures p Left Total Hip Arthroplasty, Uncemented(Left) - Dean Loving MD Hospital Course (1) Status post left hip replacement: This is a 68 year old patient admitted on 03/24/24 and underwent total hip art hroplasty. She tolerated the procedure well and there were no complications. Transferred to the PACU post op and later to the orthopedic floor for further care. She was given ancef for antibiotic prophylaxis. She was also given JOSUE stockings, SCDs, and aspirin for DVT prophylaxis. Hemoglobin, hematocrit, and vital signs were monitored during her hospital stay and remained stable. Did not require any blood transfusions. There were no complications during her hospital stay. By post op day #1 the patient was tolerating a regular diet, pain was reasonably controlled with oral pain medicine, and she was participating in physical therapy. On post op day #1 the patient was discharged home and set up with home health care. She was given printed discharge instructions including prescriptions for extra strength tylenol, aspirin, ketorolac, zofran, and senokot. Continue hip precautions. Continue physical therapy, weight bearing as tolerated. Continue JOSUE stockings. Follow up approximately 2 weeks post op or sooner if there are problems or concerns. Discharge Plan Discharge Items Patient Disposition: Home - Home Health Services Reason For Visit: Left Hip Osteoarthritis Discharge Diagnosis: Left Hip Replacement Activity: Per Instructions section Activity Comment: Follow/Obey hip precautions at all times. Weightbearing: Full weightbearing Weightbearing Comment: Weightbear as tolerated obeying hip precautions at all times. Non-emergency contact: Surgeon Call non-emergency contact if: you have any medication questions Follow-up/Referrals: Milly Hobson MD [Primary Care Provider] - Diet: Regular Addtl Attending Provider Instructions: ACTIVITY RECOMMENDATIONS: Diet: * You may resume previous diet. Physical Therapy: * Aggressive physical therapy is not usually needed. You will learn to take care of yourself safely and walk. * Follow the "Hip Precautions Instructions." * In some cases, the social service director at the hospital will arrange to have a therapist come to your house for the first couple of weeks to help you learn these skills. * You need to practice on your own or with the help of a family member as needed. * When you learn these skills, most of the therapy can be done on your own. Home Exercise: * You were shown a series of exercises in the hospital. Do these exercises three to four times each day including the exercises you were shown in physical therapy. Walking: * Get up and walk several times each day. For the first four weeks, try not to stand or walk for more than one hour at a time. If you do stand or walk for more than one hour, you will not hurt anything, but your leg will likely swell. * As you feel comfortable, you may change from the walker or crutches to a cane and then to independent walking. MEDICATIONS: New Medicine: * You will likely be taking one or more of these medicines: 1. Hydrocodone - Take, as directed, when you need it, every six hours to control your pain. 2. Aspirin - Thins your blood to lessen the chance of forming a blood clot. * The most common side effects of pain medicine and iron are nausea and con stipation. If nausea or constipation is too much of a problem or if you have any questions about your new medicines or doses, call [facility] at . We will try to help you manage these issues. "VERY IMPORTANT TO READ AND REVIEW" Pain: * The immediate post-operative period after hip replacement surgery is often quite painful. * You are given a prescription for pain medicine. You should take it, as directed, when you need it, especially before physical therapy and before going to bed. Pain that interferes with sleep is very common and can last several months. * You will likely need pain medicine for the first two to four weeks. It will not stop all of the pain. The pain will lessen and as you feel better, you may change to milder pain medicine such as Tylenol. * The most common side effects of pain medicine are nausea and constipation, so don't take more than you need. SPECIAL CARE INSTRUCTIONS: TEDs/Elastic Stockings: * The white elastic stockings help limit swelling and prevent blood clots from forming in your legs. The more you wear them, the more they work. * Wear them for six weeks. Incision Site Care: * Remove dressing postoperative day 2 and then shower. Keep direct shower pressure off the incision site. * After showering, cover eric with dry gauze and change daily or more frequently if the dressing is getting saturated with drainage. * May completely stop using bandage if wound is dry and no drainage * [place] are removed between 2 and 3 weeks post-op. If your follow-up appointment is made before 2 weeks, please have your appointment re- scheduled. It is too early to remove the eric. Prevention of Infection: * Take antibiotics one hour before any dental cleaning, dental work, urological procedure, gastrointestinal procedure or any invasive surgery in order to prevent your new joint from getting infected. * You may get the antibiotics from the doctor performing the procedure or you may call our office at before and we will call in a prescription to the pharmacy of your choice. Things to Watch For: * Drainage from the incision site that occurs more than one week after your surgery. * Severely increased leg pain or swelling. * Increased redness at the incision site. * Fever above 102 degrees Fahrenheit. * Unusual chest pain or shortness of breath. * Unusual pain or burning with urination. Call [facility] at with any of the above problems or if you have any questions about your medicines or recovery. FOLLOW UP VISIT: Make an appointment to see your doctor for approximately two weeks after surgery for a progress check and staple removal by calling the office at . Pending Studies at Discharge: No Stand-Alone Forms: [facility], Smoking Cessation Medications and DC Order Prescriptions: Continued ondansetron 4 mg tablet,disintegrating 4 mg PO Q8 PRN (Reason: nausea) Qty: 20 1RF Rx Instructions: Take as needed for nausea ketorolac 10 mg tablet 10 mg PO Q6 5 Days Qty: 20 0RF Rx Instructions: Take 4 times per day with food for 5 days to lessen pain and swelling. sennosides [Senokot] 8.6 mg tablet 8.6 mg PO BID 14 Days Qty: 28 0RF Rx Instructions: Take two times a day to prevent/treat constipation acetaminophen [Tylenol Extra Strength] 500 mg tablet 1,000 mg PO TID 30 Days Qty: 180 0RF Rx Instructions: Take 3 times per day to lessen pain. aspirin [Raquel Low Dose Aspirin] 81 mg tablet,delayed release (DR/EC) 81 mg PO BID 45 Days Qty: 90 0RF Rx Instructions: Take to prevent blood clots. albuterol sulfate 90 mcg/actuation Hfa Aerosol Inhaler 1 puff INHALATION UD PRN (Reason: ASTHMA) cyclobenzaprine 10 mg Tablet 10 mg PO HS PRN (Reason: Pain) hydrocodone-acetaminophen 7.5-325 mg Tablet 1 tab PO Q8H PRN (Reason: Pain) Discontinued ibuprofen [Advil] 200 mg Tablet 400 mg PO UD PRN (Reason: Pain) Krames/Other Patient Handouts: Hip Replace Home Recovery, Hip Total Replacement Dc Admission Data Admit Date/Time: 03/24/24 09:05 Attending Provider: Dean Loving Admit Provider: Dean Loving Primary Care Provider: Milly Hobson Other Providers: [facility] Other Interventions: Discharge Summary Assessment (RN) Last Done: 03/25/24 10:19
== END 2024-03-25 11:20 | disposition home health service (06) ==
LOC: ASU 04:46 → 3E 04:46